=== PATIENT | male | born 1940 | race Caucasian/White ===

== ENCOUNTER 2017-11-06 10:27 | Outpatient (CLI) | payer MEDICARE ==
[2017-11-06] MEDS ORDERED: Iopamidol 370 76% 100 ML VIAL ONE (10:47)
[2017-11-06 11:18] LABS: Estimated GFR-MDRD - POC Greater than 90
--- NOTE | 2017-11-06 14:24 | CT ---
CT ABDOMEN WITH AND WITHOUT IV CONTRAST: CT PELVIS WITH AND WITHOUT IV CONTRAST: 11/06/2017 HISTORY: Gross hematuria and right sided flank pain. COMPARISON: None available. FINDINGS: There is mild dependent bibasilar atelectasis. The lung bases are otherwise clear. No pulmonary nod ule is seen. Vascular calcifications are seen in the abdominal aorta and iliac arteries. There is a small, approximately 3 mm, nonobstructing calculus in the mid portion of the left kidney. No additional renal or ureteral calculi are seen bilaterally. No enhancing renal mass is seen. The re are subcentimeter, ygb-bxwwb-dm-characterize, hypodense lesions in the inferior pole of each kidne y and in the mid portion of the left kidney, which, statistically, like represent small renal cysts. There is eccentric and mild thickening of the griffiths of the right anterolateral aspect of the urinary bladder. Findings could be related to transitional cell carcinoma, as this is asymmetric, compared t o the remaining griffiths of the urinary bladder. Direct visualization is recommended. Multiple calcified granulomata are seen in the spleen. The liver, pancreas, and bilateral adrenal glands demonstrate a normal CT appearance. There is colonic diverticulosis. There is a moderate amount of retained fecal material seen in the a scending and transverse colon. The appendix is normal in caliber and filled with gas. Loops of small bowel are normal in caliber. There is no free fluid, fluid collection, or lymphadenopathy seen in the abdomen or pelvis. Degenerative changes are seen in the spine. IMPRESSION: 1. Asymmetric irregular wall thickening in the right anterolateral aspect of the urinary bladder. F indings could be related to a neoplastic process, such as transitional cell carcinoma. Direct visual ization is recommended. 2. Nonobstructing left renal calculus. 3. Subcentimeter, hgs-zkrps-jy-characterize, hypodense lesions in each kidney. 4. Colonic diverticulosis. POS: [facility]
== END 2017-11-06 10:28 | disposition home or self-care (01) ==
LOC: CT 10:27
PROVIDERS: ATTEND Urology
DX: R31.0 Gross hematuria (principal); N32.89 Other specified disorders of bladder; N20.0 Calculus of kidney; K57.30 Diverticulosis of large intestine without perforation or abscess without bleeding; N28.89 Other specified disorders of kidney and ureter
CPT/HCPCS: 74178; 82565

== ENCOUNTER 2017-11-20 13:09 | Outpatient (CLI) | payer MEDICARE | END 2017-11-20 13:10 | disposition home or self-care (01) | LOC: LABBT 13:09 | PROVIDERS: ATTEND Urology | DX: Z01.818 Encounter for other preprocedural examination (principal); N32.89 Other specified disorders of bladder ==

== ENCOUNTER 2017-11-22 10:11 | Outpatient (CLI) | payer MEDICARE ==
[2017-11-22 10:51] LABS: Hemoglobin 13.8 g/dL (14.0-18.0); Mean Corpuscular HGB CONC 32.9 g/dL (32.0-36.0); Mean Corpuscular Hemoglobin 29.7 pg (27.0-31.0); Mean Corpuscular Volume 90.4 fl (80.0-94.0); Mean Platelet Volume 8.1 fL (7.4-10.4); Platelet Count 232 thou/uL (130-400); RBC Distribution Width 12.2 % (11.5-14.5); Red Blood Cell (RBC) Count 4.66 mill/uL (4.70-6.10)
[2017-11-22 11:00] LABS: PTT 30.7 SEC (22.9-36.1); Prothrombin Time 13.7 SEC (12.0-14.7)
[2017-11-22 11:04] LABS: Anion Gap 13 mmol/L (10-20); BUN (Urea Nitrogen) 19 mg/dL (8.4-25.7); Calc. Creatinine Clearance 0 mL/min (70-130); Calcium 9.2 mg/dL (7.8-10.44); Carbon Dioxide 27 mmol/L (23-31); Chloride 103 mmol/L (98-107); Estimated GFR-MDRD 88; Glucose 148 mg/dL (83-110); Potassium 4.9 mmol/L (3.5-5.1); Sodium 138 mmol/L (136-145)
[2017-11-22 11:41] LABS: Bilirubin Negative (Negative); Blood, Urine Negative (Negative); Clarity CLEAR (Clear); Glucose, Urine (Dipstick) Negative (Negative); Leukocyte Trace (Negative); Nitrite Negative (Negative); Protein, Urine (Dipstick) Negative (Neg-Trace); Specific Gravity, Urine 1.016 (1.002-1.036); Urobilinogen 0.2 mg/dL (0.2-1.0)
[2017-11-22 11:44] LABS: Bacteria/HPF None Seen HPF (None Seen); Hyaline Casts/LPF 0-3 HYALINE CAST LPF (0-3 Hyaline); Pathc Cast-AUWi Flag 0.14 (0-2.49); Squamous Epithelial None Seen HPF (0-3); WBC/HPF 0-3 HPF (0-3)
--- NOTE | 2017-11-22 16:47 | EKG ---
Test Reason : Blood Pressure : / mmHG Vent. Rate : 048 BPM Atrial Rate : 048 BPM P-R Int : 182 ms QRS Dur : 088 ms QT Int : 424 ms P-R-T Axes : 055 015 009 degrees QTc Int : 378 ms Marked sinus bradycardia Abnormal ECG No previous ECGs available Confirmed by DR. Srinath CARDOZA (3) on 11/22/2017 4:47:26 PM Referred By: KLEBER Confirmed By:DR. Srinath CARDOZA
== END 2017-11-22 10:12 | disposition home or self-care (01) ==
LOC: LABBT 10:11
PROVIDERS: ATTEND Urology
DX: Z01.818 Encounter for other preprocedural examination (principal); N32.89 Other specified disorders of bladder
CPT/HCPCS: 80048; 81001; 85027; 85610; 85730; 86850; 86900; 86901; 87086; 93005; 93010

== ENCOUNTER 2017-11-28 07:11 | Day surgery (SDC) | payer MEDICARE ==
[2017-11-20 13:38] VITALS: BMI 27.3
[2017-11-28] MEDS ORDERED: Levofloxacin 500 mg/D5W 100 ml Premix Bag ONE (07:58)
[2017-11-28] MEDS ORDERED: B & O ONE (09:30)
[2017-11-28] MEDS ORDERED: Fentanyl 100 MCG/2 ML VIAL ONE (09:47)
[2017-11-28] MEDS ORDERED: SUGAMMADEX SODIUM 200 MG/2 ML VIAL ONE (10:37)
[2017-11-28] MEDS ORDERED: Phenazopyridine HCl 97.5 MG TABLET ONE (10:54)
--- NOTE | 2017-11-28 11:27 | OP ---
DATE OF PROCEDURE: 11/28/2017 SERVICE: Urology. SURGEON: Baljit Sullivan M.D. PREOPERATIVE DIAGNOSIS: Bladder mass. POSTOPERATIVE DIAGNOSIS: Bladder mass. PROCEDURE PERFORMED: Transurethral resection of bladder tumor between 2-5 cm. INDICATIONS FOR PROCEDURE: Mr. 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 He had gross hematuria and on cystoscopy had an irregular mass in his bladder. CT also demonstrated thickening of the bladder wall. This did not have a typical appearance of urothelial ca rcinoma; however, we did recommend resection. Given his history of glomus tumor and irregular thicke efraín, risks and benefits of surgery have been discussed and he has agreed to proceed forward. DESCRIPTION OF PROCEDURE: After identification of armband and verification of consent, the patient w as brought back to the operating room where he underwent general anesthesia with endotracheal intubat ion. He was fully paralyzed and then placed in dorsal lithotomy position, prepped and draped in usua l sterile fashion. After appropriate timeout, a 26-Occitan resectoscope sheath with visual obturator was passed through the urethra into the bladder. A full cystoscopy was performed which demonstrated hypervascularity around the bladder neck and a mildly obstructive prostate, ureters were in orthotopi c location. The tumor was noted in the anterior right bladder wall. With the bladder fully distende d, it appeared much more flat than what had been seen on cystoscopy in the office; however, it still had a kind of a hard appearance with significant vascularity. This entire area was resected using gy dexter bipolar bladder loop down into the detrusor muscle. There was no obvious perforation through the bladder wall. Meticulous hemostasis was performed of the tissues. Upon completion, the bladder was completely decompressed with evacuation of all the bladder tumor chips. Reinspection with the bladd er partially decompressed demonstrated no active bleeding from the tumor site. The area was recauter ized to ensure that there was no recurrent bleeding. Again, the area was inspected for perforations and it did not appear that there was any perivesical fat or evidence of perforation through the bladd er wall. Comfortable that the resection was complete and there was no perforation, the bladder was e mptied and the resectoscope removed. 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 Tumor did not h ave the typical appearance of urothelial carcinoma, although this is still high in the differential. He had a 16-A B&O suppository placed in his rectum and was taken out of lithotomy, then awakened and taken to PACU for recovery in stable condition. COMPLICATIONS: None. ESTIMATED BLOOD LOSS: Minimal. RETAINED TUBES AND DRAINS: None. SPECIMENS: Bladder tumor chips. DISPOSITION: The patient will be discharged home and follow up with me in approximately 2 weeks for a postop and to discuss his pathology results.
[2017-11-28] MEDS ORDERED: Cepastat Lozenges 1 LOZ PO SCH (13:15)
[2017-11-28] MEDS ORDERED: Lidocaine 1% PF 5 ML VIAL ONE (13:23)
[2017-11-28] MEDS ORDERED: PROPOFOL 200 MG/20 ML VIAL ONE (13:23)
[2017-11-28] MEDS ORDERED: Glycopyrrolate 0.2 MG/ML 5 ML SYRINGE ONE (13:23)
== END 2017-11-28 16:06 | disposition home or self-care (01) ==
LOC: SDC 07:11
PROVIDERS: ATTEND Urology
PROC: 0TBB8ZX Excision of Bladder, Via Natural or Artificial Opening Endoscopic, Diagnostic (ICD-10-PCS; principal; 2017-11-28)
DX: N32.89 Other specified disorders of bladder (principal); N30.00 Acute cystitis without hematuria
CPT/HCPCS: 36416; 88305; J1956; J2001; J2704; J3010

== ENCOUNTER 2018-12-01 03:07 | Outpatient (CLI) | payer MEDICARE ==
[2018-12-01 11:40] LABS: Hemoglobin 13.3 g/dL (14.0-18.0); Mean Corpuscular HGB CONC 33.7 g/dL (32.0-36.0); Mean Corpuscular Hemoglobin 29.8 pg (27.0-31.0); Mean Corpuscular Volume 88.3 fL (78.0-98.0); Mean Platelet Volume 8.5 fL (7.4-10.4); Platelet Count 195 thou/uL (130-400); RBC Distribution Width 12.1 % (11.5-14.5); Red Blood Cell (RBC) Count 4.46 mill/uL (4.70-6.10); White Blood Cell (WBC) Count 7.8 thou/uL (4.8-10.8)
[2018-12-01 11:44] LABS: PTT 28.8 SEC (22.9-36.1); Prothrombin Time 13.1 SEC (12.0-14.7)
[2018-12-01 11:51] LABS: Bacteria/HPF Rare-Few HPF (None Seen); Hyaline Casts/LPF NONE SEEN LPF (0-3 Hyaline); RBC/HPF None Seen HPF (0-3); Sperm/HPF 3+ HPF (None Seen); Squamous Epithelial 0-3 HPF (0-3); Transitional Epithelial 0-3 HPF (0-3)
[2018-12-01 12:33] LABS: Anion Gap 13 mmol/L (10-20); BUN (Urea Nitrogen) 17 mg/dL (8.4-25.7); Calc. Creatinine Clearance 0 mL/min (70-130); Calcium 9.7 mg/dL (7.8-10.44); Carbon Dioxide 25 mmol/L (23-31); Chloride 103 mmol/L (98-107); Estimated GFR-MDRD 90; Glucose 121 mg/dL (83-110); Potassium 4.1 mmol/L (3.5-5.1); Sodium 137 mmol/L (136-145)
--- NOTE | 2018-12-01 17:24 | EKG ---
Test Reason : Blood Pressure : / mmHG Vent. Rate : 047 BPM Atrial Rate : 047 BPM P-R Int : 166 ms QRS Dur : 088 ms QT Int : 422 ms P-R-T Axes : -21 034 060 degrees QTc Int : 373 ms Marked sinus bradycardia Septal infarct , age undetermined Abnormal ECG Confirmed by DR. Srinath CARDOZA (3) on 12/01/2018 5:24:10 PM Referred By: KLEBER Confirmed By:DR. Srinath CARDOZA
== END 2018-12-01 03:08 | disposition home or self-care (01) ==
LOC: LABBT 03:07
PROVIDERS: ATTEND Urology
DX: Z01.818 Encounter for other preprocedural examination (principal); R31.0 Gross hematuria; N32.89 Other specified disorders of bladder
CPT/HCPCS: 80048; 81015; 85027; 85610; 85730; 87086; 93005; 93010

== ENCOUNTER 2018-12-11 06:23 | Day surgery (SDC) | payer MEDICARE ==
[2018-12-01 10:49] VITALS: BMI 27.3
[2018-12-11] MEDS ORDERED: Fentanyl 100 MCG/2 ML VIAL ONE ×2 (06:57→09:38)
[2018-12-11] MEDS ORDERED: Levofloxacin 500 mg/D5W 100 ml Premix Bag ONE (07:10)
[2018-12-11] MEDS ORDERED: Iothalamate Meglumine 60% 50 ML VIAL FS ONE (07:51)
--- NOTE | 2018-12-11 16:40 | OP ---
DATE OF PROCEDURE: 12/11/2018 SERVICE: Urology. PREOPERATIVE DIAGNOSIS: Bladder lesion. POSTOPERATIVE DIAGNOSIS: Bladder lesion. PROCEDURE PERFORMED: Cold cup bladder biopsies with fulguration. INDICATIONS FOR PROCEDURE: Mr. Hogan is an 78-year-old white male, who presented to me with a history of gross hematuria. He also has a history of glomus tumor within his ureter. On office cystoscopy for evaluation of his hematuria, it was noted that he had irregular pattern on his right anterior bladder wall consisting of a stellate lesion surrounded by bumpy irregular type urothelium with heavy inflammation. The remainder of the bladder appeared normal. I could not differentiate if this represented a possible low-grade malignancy versus recurrent glomus tumor or just inflammation, therefore I recommended biopsies to help differentiate this. Risks and benefits of the procedure were discussed, and he has agreed to proceed forward. DESCRIPTION OF PROCEDURE: After identification of armband and verification of consent, the patient was brought back to the operating room, where he underwent general anesthesia with LMA. He was placed in dorsal lithotomy position and prepped and draped in usual sterile fashion. After appropriate time-out, a lubricated 22-Bolivian rigid cystoscope was introduced per urethra into the bladder. Of note, the prostate was only mildly hypertrophic with a narrow bladder neck and mild lateral lobes. There was no significant intravesical extension. The prostate was probably only about 2.5 to 3 cm in maximum length within the bladder. Both ureters were in their orthotopic location. The bladder mucosa was normal, except at the right posterior bladder wall, where there was a stellate lesion surrounded by significant erythema, bumpy and irregular mucosa with hypervascularity. Again, this looked most like an inflammation, but we had elected to take biopsies approximately 5 biopsies were taken from different areas around this entire region. and after biopsies were taken, the Bugbee electrode was brought in and the entire area cauterized for a completion cauterization area of about 3 cm. There was excellent hemostasis. No further bleeding. The bladder was evacuated and then refilled only partially to ensure that there was no bleeding without the tamponade effect of the water and none additional was seen. The bladder was then emptied again and the cystoscope removed. The patient then awakened, taken to PACU for recovery in stable condition. COMPLICATIONS: None. ESTIMATED BLOOD LOSS: Minimal. RETAINED TUBES AND DRAINS: None. SPECIMENS: Bladder biopsies. DISPOSITION: The patient will be discharged home and follow up with me in approximately 1 to 2 weeks for a postoperative check and for pathology results. Job ID: [id number]
== END 2018-12-11 13:10 | disposition home or self-care (01) ==
LOC: SDC 06:23
PROVIDERS: ATTEND Urology
PROC: 0T5B8ZZ Destruction of Bladder, Via Natural or Artificial Opening Endoscopic (ICD-10-PCS; principal; 2018-12-11)
DX: N30.00 Acute cystitis without hematuria (principal); N30.20 Other chronic cystitis without hematuria; N32.89 Other specified disorders of bladder; N40.0 Benign prostatic hyperplasia without lower urinary tract symptoms; F32.9 Major depressive disorder, single episode, unspecified; E03.9 Hypothyroidism, unspecified; E11.9 Type 2 diabetes mellitus without complications; E78.5 Hyperlipidemia, unspecified; N52.9 Male erectile dysfunction, unspecified; G47.33 Obstructive sleep apnea (adult) (pediatric); J30.9 Allergic rhinitis, unspecified; M47.816 Spondylosis without myelopathy or radiculopathy, lumbar region; F17.220 Nicotine dependence, chewing tobacco, uncomplicated; Z87.448 Personal history of other diseases of urinary system; Z79.4 Long term (current) use of insulin; Z79.899 Other long term (current) drug therapy
CPT/HCPCS: 36416; 88305; J1956; J3010; Q9961

== ENCOUNTER 2019-07-30 09:41 | Outpatient (CLI) | payer MEDICARE ==
--- NOTE | 2019-07-30 10:21 | ULT ---
ULTRASOUND ABDOMEN: HISTORY: Jaundice. FINDINGS: The liver demonstrates homogeneous echotexture without focal mass or intrahepatic ductal dilatation. There is a 2.2 cm shadowing calculus in the gallbladder with gallbladder wall thickness measuring 3 mm. No pericholecystic fluid is seen. The common duct measuring 5 mm in diameter. The visualized p ortions of the pancreas, aorta, and IVC are normal. No hydronephrosis is seen on either side. The r ight kidney is normal. There is a 1.7 cm cyst in the left kidney. The spleen measures 10 cm in efe th and has multiple echogenic foci consistent with old granulomatous disease. No free fluid is seen. IMPRESSION: 1. Cholelithiasis. 2. Splenic granulomas. 3. Left renal cyst. POS: [facility]
== END 2019-07-30 09:42 | disposition home or self-care (01) ==
LOC: BICULT 09:41
PROVIDERS: ATTEND Family Medicine
DX: R17 Unspecified jaundice (principal); K80.20 Calculus of gallbladder without cholecystitis without obstruction; N28.1 Cyst of kidney, acquired; L92.8 Other granulomatous disorders of the skin and subcutaneous tissue
CPT/HCPCS: 93975

== ENCOUNTER 2020-03-30 12:20 | Outpatient (CLI) | payer MEDICARE ==
--- NOTE | 2020-03-30 12:59 | RAD ---
3 views cervical spine: 03/30/2020 COMPARISON: None HISTORY: Chronic neck pain for one month FINDINGS: There is disc space narrowing with degenerative endplate change and anterior osteophyte for mation, most prominent at C5-6 and C6-7, and to a lesser degree, C7-T1. Multilevel mid cervical spine facet and uncovertebral osteophyte formation noted, right greater than left. Open-mouth odontoid view appears grossly unremarkable. IMPRESSION: Multilevel degenerative change as detailed above.
== END 2020-03-30 12:21 | disposition home or self-care (01) ==
LOC: SCSRAD 12:20
PROVIDERS: ATTEND Family Medicine
DX: M54.2 Cervicalgia (principal); M47.812 Spondylosis without myelopathy or radiculopathy, cervical region
CPT/HCPCS: 72040

== ENCOUNTER 2021-12-27 10:10 | Outpatient (CLI) | payer MEDICARE | END 2021-12-27 10:11 | disposition home or self-care (01) | LOC: BICULT 10:10 | PROVIDERS: ATTEND Family Medicine | DX: R09.89 Other specified symptoms and signs involving the circulatory and respiratory systems (principal) | CPT/HCPCS: 93923 ==

== ENCOUNTER 2022-08-21 11:05 | Outpatient (CLI) | payer OTHER | END 2022-08-21 11:06 | disposition home or self-care (01) | LOC: TBSIIMAG 11:05 | PROVIDERS: ATTEND Neurological Surgery | DX: M54.50 Low back pain, unspecified (principal); M47.816 Spondylosis without myelopathy or radiculopathy, lumbar region | CPT/HCPCS: 72148 ==

== ENCOUNTER 2022-11-06 10:54 | Outpatient (CLI) | payer OTHER ==
[2022-11-06 12:18] LABS: Hemoglobin 13.7 g/dL (13.5-17.5); Mean Corpuscular HGB CONC 33.5 g/dL (32.0-36.0); Mean Corpuscular Volume 86.7 fl (81.2-95.1); Mean Platelet Volume 11.3 fl (7.4-10.4); Platelet Count 188 10x3/uL (150-450); RBC Distribution Width 13.2 % (11.5-14.5); Red Blood Cell (RBC) Count 4.72 10x6/uL (4.32-5.72); White Blood Cell (WBC) Count 8.3 10x3/uL (3.5-10.5)
[2022-11-06 12:39] LABS: Anion Gap 15 mmol/L (10-20); BUN (Urea Nitrogen) 14 mg/dL (8.4-25.7); Calc. Creatinine Clearance 0 mL/min (70-130); Calcium 9.3 mg/dL (7.8-10.44); Carbon Dioxide 22 mmol/L (23-31); Chloride 106 mmol/L (98-107); Estimated GFR 88; Glucose 185 mg/dL (83-110); Potassium 4.6 mmol/L (3.5-5.1); Sodium 138 mmol/L (136-145)
== END 2022-11-06 10:55 | disposition home or self-care (01) ==
LOC: LABBT 10:54
PROVIDERS: ATTEND Neurological Surgery
DX: Z01.818 Encounter for other preprocedural examination (principal); M48.062 Spinal stenosis, lumbar region with neurogenic claudication
CPT/HCPCS: 80048; 85027; 93005; 93010

== ENCOUNTER 2022-11-12 08:38 | Inpatient (IN) | payer OTHER ==
[2022-11-08 14:27] VITALS: BMI 28.0
[2022-11-12] MEDS ORDERED: Lidocaine 1% PF 5 ML VIAL ONE (11:00)
[2022-11-12] MEDS ORDERED: Ondansetron PF 4 MG/2 ML Vial ONE (11:00)
[2022-11-12] MEDS ORDERED: PROPOFOL 200 MG/20 ML VIAL ONE (11:00)
[2022-11-12] MEDS ORDERED: Rocuronium Bromide 10 MG/ML (10ML VIAL) ONE (11:00)
[2022-11-12] MEDS ORDERED: Glycopyrrolate 0.2 MG/ML 5 ML SYRINGE ONE (11:00)
[2022-11-12] MEDS ORDERED: ePHEDrine Sulfate 50 MG/10 ML VIAL ONE (11:00)
[2022-11-12] MEDS ORDERED: Vancomycin 1 GM VIAL ONE ×2 (11:36→13:21)
[2022-11-12] MEDS ORDERED: fentaNYL 50 mcg/mL 1 mL Vial ONE ×2 (12:03→16:25)
[2022-11-12] MEDS ORDERED: Sodium Chloride 0.9% 100 ML ONE (12:04)
[2022-11-12] MEDS ORDERED: CEFAZOLIN 2 GM VIAL ONE (12:04)
[2022-11-12] MEDS ORDERED: SUGAMMADEX SODIUM 200 MG/2 ML VIAL ONE (13:25)
[2022-11-12] MEDS ORDERED: Milk Of Magnesia 30 ML UDCUP PO PRN (13:40)
[2022-11-12] MEDS ORDERED: Cyclobenzaprine 10 MG TAB PO PRN (13:40)
[2022-11-12] MEDS ORDERED: diphenhydrAMINE 25 MG CAP PO PRN (13:40)
[2022-11-12] MEDS ORDERED: Acetaminophen/Codeine 30-300mg Tablet PO PRN ×2 (13:40)
[2022-11-12] MEDS ORDERED: Morphine 2 MG/ML VIAL SLOW IVP PRN (13:40)
[2022-11-12] MEDS ORDERED: Prochlorperazine 10 MG/2 ML VIAL IM PRN (13:40)
[2022-11-12] MEDS ORDERED: Mag-Al 1200 mg/1200 mg/30 ML UDCUP PO PRN (13:40)
[2022-11-12] MEDS ORDERED: Promethazine 25 MG TAB PO PRN (13:40)
[2022-11-12] MEDS ORDERED: Ondansetron PF 4 MG/2 ML Vial IVP PRN (13:40)
[2022-11-12] MEDS ORDERED: Acetaminophen 325 MG TAB PO PRN (13:40)
[2022-11-12] MEDS ORDERED: Bisacodyl 10 MG SUPP PR PRN (13:40)
[2022-11-12] MEDS ORDERED: Promethazine HCl 25 MG/ML VIAL IM PRN (13:57)
[2022-11-12] MEDS ORDERED: Ondansetron HCl/PF 4 MG/2 ML Vial IVP PRN (13:57)
[2022-11-12] MEDS ORDERED: fentaNYL PF 100 MCG/2 ML SYRINGE ONE ×2 (14:03→14:33)
[2022-11-12] MEDS ORDERED: Dextrose 5% in Water 1,000 ML IV PRN (14:28)
[2022-11-12] MEDS ORDERED: HumaLOG 300 UNITS/3 ML VIAL SC PRN (14:28)
[2022-11-12] MEDS ORDERED: Dextrose 50% Abboject 50 ML SYRINGE SLOW IVP PRN (14:28)
[2022-11-12] MEDS: CEFAZOLIN 2 GM in Sodium Chloride 0.9% 100 ML IVPB SCH (19:56)
[2022-11-12] MEDS: Sodium Chloride 0.9% 1,000 ML IV SCH (21:06)
[2022-11-12] MEDS: Dorzolamide HCl 2% Ophth Soln 10 ml Bottle R EYE SCH (21:07)
[2022-11-12] MEDS: Dorzolamide HCl 2% Ophth Soln 10 ml Bottle L EYE SCH (21:07)
[2022-11-12] MEDS: traMADol HCl 50 MG TAB PO PRN (23:09)
[2022-11-13] MEDS: CEFAZOLIN 2 GM in Sodium Chloride 0.9% 100 ML IVPB SCH ×2 (02:44→09:34)
[2022-11-13] MEDS: Sodium Chloride 0.9% 1,000 ML IV SCH (03:51)
[2022-11-13] MEDS: traMADol HCl 50 MG TAB PO PRN (05:09)
[2022-11-13] MEDS ORDERED: Levothyroxine Sodium 75 MCG TAB PO SCH (06:00)
[2022-11-13] MEDS ORDERED: Venlafaxine HCl XR 75 MG CAP PO SCH (09:00)
[2022-11-13] MEDS: Dorzolamide HCl 2% Ophth Soln 10 ml Bottle L EYE SCH (09:36)
[2022-11-13] MEDS: Dorzolamide HCl 2% Ophth Soln 10 ml Bottle R EYE SCH (09:36)
[2022-11-13] MEDS ORDERED: Phenol 118 ML BOT PO PRN (11:05)
[2022-11-13] MEDS ORDERED: Phenol 118 ML BOT PO SCH (11:15)
[2022-11-13 16:24] VITALS: BP 144/70; TEMP 98.9
== END 2022-11-13 16:00 | disposition home or self-care (01) | DRG 517 ==
LOC: SDC 08:38 → SURG A 18:48 → OBSVTOIN 11-13 12:50
PROVIDERS: ADMIT Neurological Surgery; ATTEND Neurological Surgery
PROC: 01NB0ZZ Release Lumbar Nerve, Open Approach (ICD-10-PCS; principal; 2022-11-12)
DX: M48.062 Spinal stenosis, lumbar region with neurogenic claudication (principal); E11.9 Type 2 diabetes mellitus without complications; H40.9 Unspecified glaucoma; E03.9 Hypothyroidism, unspecified; F41.9 Anxiety disorder, unspecified; F32.A Depression, unspecified; Z90.49 Acquired absence of other specified parts of digestive tract; Z79.899 Other long term (current) drug therapy; Z79.4 Long term (current) use of insulin; Z79.890 Hormone replacement therapy
CPT/HCPCS: 36416; C1713; J1815; J2272; J2405; J2704; J3010; J3370; J3490